=== PATIENT | female | born 1955 | race Caucasian/White ===

== ENCOUNTER → 2016-05-20 | Outpatient (CLI) | payer OTHER ==
[~2016-05-20] MED LIST: HYDR-3816 PO
--- NOTE | 2016-05-20 10:34 | Diagnostic Imaging Report ---
INDICATION: Right knee pain AP, oblique, and lateral views of the right knee are obtained. There is mild patellofemoral spurring. There is mild medial joint space narrowing with osteophyte formation. There is no acute fracture or acute bony abnormality. There is no overt joint effusion. IMPRESSION: Mild degenerative findings with no acute bony abnormality. Dictated by: Dictated on workstation # [id number]
== END ==
LOC: RAD 10:10
PROVIDERS: ATTEND Family Medicine
DX: M25.561 Pain in right knee (principal)
CPT/HCPCS: 73562

== ENCOUNTER → 2016-06-10 | Outpatient (CLI) | payer OTHER ==
--- OUTSIDE RECORDS SUMMARY | 2016-06-10 15:32 | XMS REPORT | Continuity of Care Document ---
Author Author [facility] Organization [facility] Address Unknown Phone Unavailable Allergies Medications Problems Date Dx Coded Attending Type Code Diagnosis Diagnosed By 01/25/2014 RODOLFO NATH MD Ot V43.64 HIP JOINT REPLACEMENT STATUS 01/25/2014 RODOLFO NATH MD Ot V58.61 ANTICOAGULANTS,LT,CURRENT USE 01/25/2014 RODOLFO NATH MD Ot V58.83 ENCOUNTER FOR THERAPEUTIC DRUG MONITORIN 10/31/2015 Ot 528.9 ORAL SOFT TISSUE DIS NEC 10/31/2015 HAYLIE FRIAS DOQUELINE S Ot 715.35 LOC OSTEOARTH NOS-PELVIS 10/31/2015 RODRIGUEZ SHAH WARREN S Ot V76.12 OTH SCREEN MAMMO-MALIGN NEOPLASM OF ENEDELIA 10/31/2015 DARRIONNDBHAVANI DO, WARREN S Ot 715.15 LOC PRIM OSTEOART-PELVIS 10/31/2015 HAYLIE FRIAS DOQUELINE S Ot V72.84 EXAM PRE-OPERATIVE NOS 10/31/2015 Ot V43.64 HIP JOINT REPLACEMENT STATUS 10/31/2015 Ot V58.61 ANTICOAGULANTS,LT,CURRENT USE 10/31/2015 Ot V58.83 ENCOUNTER FOR THERAPEUTIC DRUG MONITORIN 11/01/2015 DARRIONNDBHAVANI SHAH WARREN S Ot Z12.31 ENCNTR SCREEN MAMMOGRAM FOR MALIGNANT NE 11/01/2015 DARRIONNDBHAVANI DO, WARREN S Ot Z12.31 ENCNTR SCREEN MAMMOGRAM FOR MALIGNANT NE 05/20/2016 Ot 528.9 ORAL SOFT TISSUE DIS NEC 05/20/2016 DARRIONNDBHAVANI DO, WARREN S Ot 715.35 LOC OSTEOARTH NOS-PELVIS 05/20/2016 DARRIONNDBHAVANI DO WARREN S Ot V76.12 OTH SCREEN MAMMO-MALIGN NEOPLASM OF ENEDELIA 05/20/2016 DARRIONNDHAYLIE BECKHAM DOQUELINE S Ot 715.15 LOC PRIM OSTEOART-PELVIS 05/20/2016 WARREN FRIAS DO Ot V72.84 EXAM PRE-OPERATIVE NOS 05/20/2016 Ot V43.64 HIP JOINT REPLACEMENT STATUS 05/20/2016 Ot V58.61 ANTICOAGULANTS,LT,CURRENT USE 05/20/2016 Ot V58.83 ENCOUNTER FOR THERAPEUTIC DRUG MONITORIN 05/20/2016 WARREN FRIAS DO Ot Z12.31 ENCNTR SCREEN MAMMOGRAM FOR MALIGNANT NE 05/21/2016 WARREN FRIAS DO Ot M25.561 PAIN IN RIGHT KNEE Procedures Results Encounters ACCT No. Visit Date/Time Discharge Status Pt. Type Provider Facility Loc./Unit Complaint [id number] 11/21/2013 08:52:00 2013 00:01:[address], RODOLFO Barlow [facility] LAB S/P TH COUMADIN [id number] 10/04/2013 08:19:00 2013 23:59:59 CLS Outpatient WARREN FRISA DO [facility] CARD OSTEOARTHROSIS,PRE OP [id number] 04/14/2013 10:45:00 2012 23:59:59 CLS Outpatient WARREN FRIAS DO [facility] RAD R HIP PAIN,SCREENING MAMMO [id number] 05/20/2016 10:10:00 ACT Outpatient WARREN FRIAS DO [facility] RAD RT KNEE PAIN [id number] 10/31/2015 08:39:00 ACT Outpatient WARREN FRIAS DO [facility] RAD SCREENING [id number] 01/26/2014 00:00:00 Document Registration [id number] 03/15/2012 15:31:00 Document Registration
--- NOTE | 2016-06-10 16:33 | Diagnostic Imaging Report ---
PROCEDURE: MRI right joint lower extremity without contrast. TECHNIQUE: Multiplanar, multisequence non contrast-enhanced MRI of the right lower extremity was accomplished. INDICATION: Knee pain. There are no previous MRI examinations available for comparison. The plain film examination of the right knee performed on 05/20/16 failed to show any sign of an acute abnormality. There was mild narrowing of the medial compartment of the knee joint, however. FINDINGS: This study is less than optimal due to the patient's body habitus. On the proton dense sagittal images, the midportion of the medial meniscus is thinned and somewhat indistinct. I am concerned that it is partially torn. There is also some abnormal signal of the posterior horn of the medial meniscus and this portion of the meniscus may be torn as well. The lateral meniscus seems to be intact. The anterior and posterior cruciate ligaments, the quadriceps and infrapatellar tendons, the collateral ligaments, the biceps femoris tendon and the iliotibial band show no sign of an acute injury. There is no evidence for an injury to either the medial or lateral retinaculum. There is no abnormal signal arising from the osseous structures to suggest bone edema or a fracture. There does appear to be at least moderate degenerative disease involving the articular surface of the medial femoral condyle. Most likely, these degenerative changes are related to the suspected injury to the midportion and posterior horn of the medial meniscus. The articular surface of the lateral femoral condyle is fairly well maintained. There is mild narrowing of the lateral aspect of the patellofemoral space. There is a small joint effusion present. There is also a 1.2 x 4.7 cm Osborne's cyst. IMPRESSION: 1. The indistinct appearance of the midportion and the posterior horn of the medial meniscus suggests that these portions of the meniscus are partially torn. There is also at least moderate degenerative disease involving the articular surface of the medial femoral condyle. 2. The lateral meniscus and the major ligaments and tendons are intact. 3. There is no sign of an acute bony abnormality. 4. There is a small joint effusion present as well as a Osborne's cyst. Dictated by: Dictated on workstation # [id number]
== END ==
LOC: RAD 15:28
PROVIDERS: ATTEND Family Medicine
DX: M17.11 Unilateral primary osteoarthritis, right knee (principal); M25.461 Effusion, right knee; M71.21 Synovial cyst of popliteal space [Baker], right knee
CPT/HCPCS: 73721

== ENCOUNTER 2016-06-26 15:18 | Outpatient (CLI) | payer OTHER ==
[~2016-06-26] VITALS: Ht 166.4 cm; Wt 100.9 kg
--- OUTSIDE RECORDS SUMMARY | 2016-06-26 15:20 | XMS REPORT | Continuity of Care Document ---
Author Author [facility] Organization [facility] Address Unknown Phone Unavailable Allergies Medications Problems [...] DO Ot M25.561 PAIN IN RIGHT KNEE 06/11/2016 WARREN FRIAS DO S Ot M17.11 UNILATERAL PRIMARY OSTEOARTHRITIS, RIGHT 06/11/2016 WARREN FRIAS DO S Ot M25.461 EFFUSION, RIGHT KNEE 06/11/2016 WARREN FRIAS DO S Ot M71.21 SYNOVIAL CYST OF POPLITEAL SPACE [ SHAY] 06/25/2016 WARREN FRIAS DO S Ot M25.561 PAIN IN RIGHT KNEE Procedures Results Encounters ACCT No. Visit Date/Time Discharge Status Pt. Type Provider Facility Loc./Unit Complaint [id number] 11/21/2013 08:52:00 2013 00:01:[address], RODOLFO Barlow [facility] LAB S/P TH COUMADIN [id number] 10/04/2013 08:19:00 2013 23:59:59 CLS Outpatient ILIR FRIAS DOLINE S [facility] CARD OSTEOARTHROSIS,PRE OP [id number] 04/14/2013 10:45:00 2012 23:59:59 CLS Outpatient HAYLIE FRIAS DOQUELINE S [facility] RAD R HIP PAIN,SCREENING MAMMO [id number] 06/10/2016 15:28:00 ACT Outpatient ILIR FRIAS DOLINE S [facility] RAD PAIN IN RIGHT KNEE [id number] 05/20/2016 10:10:00 ACT Outpatient HAYLIE FRIAS DOQUELINE S [facility] RAD RT KNEE PAIN [id number] 10/31/2015 08:39:00 ACT Outpatient ILIR FRIAS DOLINE S [facility] RAD SCREENING [id number] 01/26/2014 00:00:00 Document Registration [id number] 03/15/2012 15:31:00 Document Registration
[2016-06-26 15:38] VITALS: BP 129/80
== END 2016-06-26 16:00 | disposition home or self-care (01) ==
LOC: PREOP 15:18
PROVIDERS: ATTEND Orthopaedic Surgery
DX: Z01.818 Encounter for other preprocedural examination (principal); Z11.2 Encounter for screening for other bacterial diseases; M23.8X1 Other internal derangements of right knee
CPT/HCPCS: 87081

== ENCOUNTER 2016-07-02 08:42 | Day surgery (SDC) | payer OTHER ==
--- NOTE | 2016-07-01 11:05 | HISTORY AND PHYSICAL ---
DICTATING PHYSICIAN: Dr. Mccall DATE OF ADMISSION: 07/02/2016 Outpatient surgery for right knee arthroscopy. HISTORY: The patient is a 60-year-old female with reports of progressively worsening right knee pain. She injured her right knee while twisting. She felt and heard a pop. She has had posterior medial knee pain since that point. She reports no improvement. She has had to ambulate with crutches. She denies hip pain, back pain and paresthesias and due to interference with activities of daily living and failure to improve with conservative measures, the patient has elected to proceed with surgical intervention. REVIEW OF SYSTEMS: No chest pain, no shortness of breath. No dysuria. PAST MEDICAL HISTORY: Allergic rhinitis. PAST SURGICAL HISTORY: 1. Hysterectomy. 2. Tonsillectomy. FAMILY HISTORY: Significant for hypertension. PRIMARY CARE PROVIDER: Dr. Billy. MEDICATIONS: 1. Naprosyn. 2. Mobic. 3. Fish oil. 4. Vitamin C. 5. Calcium. ALLERGIES: No known drug allergies. SOCIAL HISTORY: The patient denies alcohol and tobacco use. Outside MRI reveals posterior horn medial meniscal tear extending to the body with some mild medial joint space narrowing. PHYSICAL EXAMINATION: The patient is well-developed, well-nourished, in no acute distress. HEENT: Normocephalic, atraumatic. Pupils are equal, round, and reactive to light. Oropharynx is clear. NECK: Supple with no lymphadenopathy. LUNGS: Clear to auscultation bilaterally. HEART: Regular rate and rhythm. ABDOMEN: Soft, nontender, nondistended. EXTREMITY EXAM: The right knee demonstrates a large effusion. She is markedly tender along her medial joint line and has pain medially with Edith's. She has pain with hyperflexion. She ambulates with a crutch. There is no varus valgus laxity. Negative anterior posterior drawer. No skin lesions are noted and sensation is intact throughout. 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 PLAN: Right knee arthroscopy, partial medial meniscectomy and chondroplasty. The risks, benefits, options, ramifications and recovery have been discussed at length with the patient and she understands and wishes to proceed. Job ID: [id number] Dictated Date: 06/24/2016 09:45:00 Manufacturing Engineer Paint Date: 06/24/2016 11:46:26/rohit
[~2016-07-02] VITALS: Ht 166.4 cm; Wt 100.9 kg
[2016-07-02] MEDS: LACTATED RINGERS 1,000 ML IV PRN ×2 (08:55→11:34)
--- OUTSIDE RECORDS SUMMARY | 2016-07-02 08:56 | XMS REPORT | Continuity of Care Document ---
Author Author [facility] Organization [facility] Address Unknown Phone Unavailable Allergies Active Description Code Type Severity Reaction Onset Reported/Identified Relationship to Patient Clinical Status Yes No Known Drug Allergies [id number] Drug Allergy Unknown N/ A 06/26/2016 Medications Problems Date Dx Coded Attending Type [...] OTH SCREEN MAMMO-MALIGN NEOPLASM OF ENEDELIA 10/31/2015 HAYLIE FRIAS DOQUELINE S Ot 715.15 LOC PRIM OSTEOART-PELVIS 10/31/2015 HAYLIE FRIAS DOQUELINE S Ot V72.84 EXAM PRE-OPERATIVE NOS 10/31/2015 Ot V43.64 HIP JOINT REPLACEMENT STATUS 10/31/2015 Ot V58.61 ANTICOAGULANTS,LT,CURRENT USE 10/31/2015 Ot V58.83 ENCOUNTER FOR THERAPEUTIC DRUG MONITORIN 11/01/2015 DARRIONNDBHAVANI SHAH WARREN S Ot Z12.31 ENCNTR SCREEN MAMMOGRAM FOR MALIGNANT NE 11/01/2015 HAYLIE FRIAS DOQUELINE S Ot Z12.31 ENCNTR SCREEN MAMMOGRAM FOR MALIGNANT NE 05/20/2016 Ot 528.9 ORAL SOFT TISSUE DIS NEC 05/20/2016 HAYLIE FRIAS DOQUELINE S Ot 715.35 LOC OSTEOARTH NOS-PELVIS 05/20/2016 HAYLIE FRIAS DOQUELINE S Ot V76.12 OTH SCREEN MAMMO-MALIGN NEOPLASM OF ENEDELIA 05/20/2016 WARREN FRIAS DO Ot 715.15 LOC PRIM OSTEOART-PELVIS 05/20/2016 WARREN FRIAS DO Ot V72.84 EXAM PRE-OPERATIVE NOS 05/20/2016 Ot V43.64 HIP JOINT REPLACEMENT STATUS 05/20/2016 Ot V58.61 ANTICOAGULANTS,LT,CURRENT USE 05/20/2016 Ot V58.83 ENCOUNTER FOR THERAPEUTIC DRUG MONITORIN 05/20/2016 WARREN FRIAS DO Ot Z12.31 ENCNTR SCREEN MAMMOGRAM FOR MALIGNANT NE 05/21/2016 WARREN FRIAS DO Ot M25.561 PAIN IN RIGHT KNEE 06/11/2016 WARREN FRIAS DO Ot M17.11 UNILATERAL PRIMARY OSTEOARTHRITIS, RIGHT 06/11/2016 WARREN FRIAS DO Ot M25.461 EFFUSION, RIGHT KNEE 06/11/2016 RODRIGUEZ SHAH WARREN Noel Ot M71.21 SYNOVIAL CYST OF POPLITEAL SPACE [ SHAY] 06/25/2016 RODRIGUEZ SHAH WARREN Noel Ot M25.561 PAIN IN RIGHT KNEE 06/26/2016 Ot V43.64 HIP JOINT REPLACEMENT STATUS 06/26/2016 Ot V58.61 ANTICOAGULANTS,LT,CURRENT USE 06/26/2016 Ot V58.83 ENCOUNTER FOR THERAPEUTIC DRUG MONITORIN 06/27/2016 LILA PAULA MD Ot M23.8X1 OTHER INTERNAL DERANGEMENTS OF RIGHT KNE 06/27/2016 LILA PAULA MD Ot Z01.818 ENCOUNTER FOR OTHER PREPROCEDURAL EXAMIN 06/27/2016 LILA PAULA MD Ot Z11.2 ENCOUNTER FOR SCREENING FOR OTHER BACTER Procedures Results Test Result Range Methicillin resistant Staphylococcus aureus (MRSA) screening culture - 15:30 Methicillin resistant Staphylococcus aureus (MRSA) screening culture NEG NRG Encounters ACCT No. Visit Date/Time Discharge Status Pt. Type Provider Facility Loc./Unit Complaint [id number] 06/26/2016 15:18:00 2016 16:00:00 DIS Outpatient LILA PAULA MD [facility] PREOP RIGHT TORN MEDIAL MENISCUS [id number] 11/21/2013 08:52:00 2013 00:01:[address], RODOLFO Barlow [facility] LAB S/P TH COUMADIN [id number] 10/04/2013 08:19:00 2013 23:59:59 CLS Outpatient WARREN FRIAS DO [facility] CARD OSTEOARTHROSIS,PRE OP [id number] 04/14/2013 10:45:00 2012 23:59:59 CLS Outpatient WARREN FRIAS DO [facility] RAD R HIP PAIN,SCREENING MAMMO [id number] 07/02/2016 12:00:00 PEN Preadamada PAULA MD, LILA Mora [facility] RIGHT KNEE TORN MENISCUS [id number] 06/10/2016 15:28:00 ACT Outpatient WARREN FRIAS DO [facility] RAD PAIN IN RIGHT KNEE [id number] 05/20/2016 10:10:00 ACT Outpatient WARREN FRIAS DO [facility] RAD RT KNEE PAIN [id number] 10/31/2015 08:39:00 ACT Outpatient WARREN FRIAS DO [facility] RAD SCREENING [id number] 01/26/2014 00:00:00 Document Registration [id number] 03/15/2012 15:31:00 Document Registration
--- OUTSIDE RECORDS SUMMARY | 2016-07-02 08:56 | XMS REPORT | Continuity of Care Document ---
Author Author [facility] Organization [facility] Address Unknown Phone Unavailable Allergies Active Description Code Type Severity Reaction Onset Reported/Identified Relationship to Patient Clinical Status Yes No Known Drug Allergies [id number] Drug Allergy Unknown N/ A 06/26/2016 Medications [...] EFFUSION, RIGHT KNEE 06/11/2016 RODRIGUEZ SHAH WARREN Nole Ot M71.21 SYNOVIAL CYST OF POPLITEAL SPACE [...] Status Pt. Type Provider Facility Loc./Unit Complaint [id number] 06/26/2016 15:18:00 2016 16:00:00 DIS Outpatient LILA PAULA MD [facility] PREOP RIGHT TORN MEDIAL MENISCUS [id number] 11/21/2013 08:52:00 2013 00:01:[address], RODOLFO Barlow [facility] LAB S/P TH COUMADIN [id number] 10/04/2013 08:19:00 2013 23:59:59 CLS Outpatient WARREN FRIAS DO [facility] CARD OSTEOARTHROSIS,PRE OP [id number] 04/14/2013 10:45:00 2012 23:59:59 CLS Outpatient WARREN FRIAS DO [facility] RAD R HIP PAIN,SCREENING MAMMO [id number] 07/02/2016 12:00:00 PEN Preadamada PAULA MD, LILA Mora [facility] RIGHT KNEE TORN MENISCUS [id number] 06/10/2016 15:28:00 ACT Outpatient WARREN FRIAS DO [facility] RAD PAIN IN RIGHT KNEE [id number] 05/20/2016 10:10:00 ACT Outpatient WARREN FRIAS DO [facility] RAD RT KNEE PAIN [id number] 10/31/2015 08:39:00 ACT Outpatient WARREN FRIAS DO [facility] RAD SCREENING [id number] 01/26/2014 00:00:00 Document Registration [id number] 03/15/2012 15:31:00 Document Registration
[2016-07-02 09:00] VITALS: BP 131/88
[2016-07-02] MEDS ORDERED: LACTATED RINGERS 1,000 ML IV ONE ×2 (09:14→11:45)
[2016-07-02] MEDS ORDERED: SEVOFLURANE (ULTANE) 15 ML INHAL SOLN ONE ×3 (09:14→11:45)
[2016-07-02] MEDS ORDERED: LIDOCAINE PF 2% 10 ML (XYLOCAINE) AMP ONE (09:14)
[2016-07-02] MEDS ORDERED: proPOfol 200 MG/20 ML (DIPRIVAN) VIAL IV ONE (09:14)
[2016-07-02] MEDS ORDERED: fentaNYL INJECTION 100 MCG/2 ML AMP ONE (09:15)
[2016-07-02] MEDS ORDERED: MIDAZOLAM 2 MG/2 ML (VERSED) VIAL ONE (09:15)
--- NOTE | 2016-07-02 09:20 | Progress Note-Pre Operative ---
Pre-Operative Progress Note H&P Reviewed The H&P was reviewed, patient examined and no changes noted. Date H&P Reviewed: Jul 02, 2016 Time H&P Reviewed: 09:20 Pre-Operative Diagnosis: right knee medial meniscal tear and chondromalacia LILA PAULA MD Jul 02, 2016 09:20
--- NOTE | 2016-07-02 09:22 | Progress Note-Post Operative ---
Post-Operative Progess Note Project Economist Dev Schwab Pre-Operative Diagnosis right knee medial meniscal tear and chondromalacia of the patella Post-Operative Diagnosis right knee medial meniscal tear, chondromalacia of the patella and chondral defect of medial femoral condyle Post-Op Procedure Note Date of Procedure: Jul 02, 2016 Name of Procedure: right knee arthroscopic partial medial meniscectomy, chondroplasty of the patella and microfracture of the medial femoral condyle Anesthesia Type GETA Estimated blood loss (mL): minimal Packing: none Specimen(s) collected none LILA PAULA MD Jul 02, 2016 09:22
[2016-07-02] MEDS ORDERED: ceFAZolin 1,000 MG (ANCEF) VIAL ONE (09:31)
[2016-07-02] MEDS ORDERED: NS (IVPB) 50 ML ONE (09:31)
[2016-07-02] MEDS ORDERED: HYDROcodone/APAP 7.5 MG/325 MG (LORTAB, LORCET PLUS) TABLET PO PRN (09:45)
[2016-07-02] MEDS ORDERED: BUPIVACAINE 0.25% 30 ML (SENSORCAINE) VIAL ONE (10:45)
[2016-07-02] MEDS ORDERED: morphine PF (DURAMORPH) 10 MG/10 ML AMP ONE (10:45)
[2016-07-02] MEDS ORDERED: ceFAZolin 1 GM/NS 50 ML IVPB IV ONE ×2 (11:00)
[2016-07-02] MEDS ORDERED: morphine INJ 10 MG/ML 1ML (SYR OR VIAL) IVP PRN (11:45)
[2016-07-02] MEDS ORDERED: ONDANSETRON 4 MG/2 ML (SDV) Z0FRAN IVP PRN (11:45)
[2016-07-02] MEDS ORDERED: DEXAMETHASONE PF 10 MG/ML (DECADRON) VIAL ONE (11:45)
[2016-07-02] MEDS ORDERED: ONDANSETRON 4 MG/2 ML (SDV) Z0FRAN ONE (11:45)
[2016-07-02] MEDS ORDERED: MEPERIDINE (DEMEROL) INJ 50 MG/ML IVP PRN (11:45)
[2016-07-02 12:35] VITALS: BP 135/84
[2016-07-02] MEDS ORDERED: HYDR-3816 PO (13:00)
[2016-07-02 13:05] VITALS: BP 130/78
--- NOTE | 2016-07-02 13:35 | Physical Therapy Ortho Eval ---
PT Orthopedic Evaluation Type of Surgery Knee Scope WBAT Prior Level of Function Current Living Status: Spouse Patient states she was using 1 crutch before surgery. Subjective Subjective Patient in bed pre tx, agrees to PT, states she has pain of 5/10 in right knee. Entry Into Home: Stairs With Railing Steps Into Home: 3 Objective Objective right knee ROM flexion 70 degrees, extension +3 degrees, intact light touch Motor Control Motor Control: Motor Control WNL Strength Strength: WFL Transfer Transfers (B, C, W/C) (FIM): 4 (CGA) Gait Gait Assistive Device: Crutches Weight Bearing Restriction: Weight Bearing/Tolerated Location Restriction: R LE Gait (FIM): 2 Distance: 50' Gait Level of Assist: 4 (CGA) Summary/Comments patient also went up and down 1 step using axillary crutches with CGA and cues for safety and foot placement, she was also toileted with CGA Treatment Rendered Treatment: Therapeutic Exercises, Gait Train, Step Train Exercise Instruction: Quad Sets, Heel Slides, Ankle Pumps Assessment/Goals Goal Time Frame: 1 Visit Plan Treatment Plan: Discharge PT/Family Agrees to Plan: Yes Time Time In: 1310 Time Out: 1325 Total Billed Treatment Time: 15 Billed Treatment Time 1 visit EVL 15 min Yes PT/OT Therapy GCodes Therapy Functional Limitation: Physical Therapy Test(s)/Tool used to determine: Level of Assistance Scale Functional Limitation-Current Charge Code: MOBCUR Modifier: CI Functional Limitation-Goal Charge Code: MOBGOAL Modifier: CI Functional Limitation-D/C Charge Codes: MOBDC Modifier: CI SARITA MARLEY PT Jul 02, 2016 13:35
--- NOTE | 2016-07-02 15:21 | OPERATIVE REPORT ---
PROCEDURE PHYSICIAN: LILA PAULA DATE OF PROCEDURE: 07/02/2016 PREOPERATIVE DIAGNOSIS: 1. Right knee medial meniscal tear. 2. Right knee chondromalacia of the patella. POSTOPERATIVE DIAGNOSIS: 1. Right knee medial meniscal tear. 2. Right knee chondromalacia of the patella. 3. Right knee chondral defect of the medial femoral condyle. PROCEDURE: 1. Right knee arthroscopic microfracture of the medial femoral condyle. 2. Right knee arthroscopic partial medial meniscectomy. 3. Right knee arthroscopic chondroplasty of the patella. SURGEON: Cal [employer] OR BAGGAGE HANDLING RAMPMAN: Dev Schwab who assisted throughout the procedure and closed the incision. ANESTHESIA: General endotracheal by Dr. De La Cruz. TOURNIQUET TIME: Was not applicable. ESTIMATED BLOOD LOSS: Minimal. DRAINS: None. COMPLICATIONS: None. POSTOPERATIVE PLAN: No impact activities for 8 weeks with weight-bearing as tolerated with assistive devices. The patient was transported to the recovery room, awake, in stable condition. STATEMENT OF MEDICAL NECESSITY: The patient is a 60-year-old female with complaints of right knee pain along her medial joint line. She reports catching and locking. On exam she had tenderness along her medial joint line and pain medially with Edith's. She was having to ambulate with a crutch and due to functional impairment, the patient elected proceed with surgical intervention. Examination under anesthesia revealed range of motion 0/0/140 with negative Deuce. Negative anterior posterior drawer. No varus valgus laxity and negative pivot shift. Arthroscopic findings demonstrated grade 2 chondral flaps over the central portion of the patella in a 8 x 8 area. The trochlea demonstrated grade 1 chondral softening. The medial and lateral gutters were clear. The lateral compartment demonstrated no significant meniscal or chondral pathology. The ACL and PCL were intact. The medial compartment demonstrated a radial tear of the posterior horn/body junction of the meniscus involving approximately 20% of the posterior horn/body junction. In addition, there was a grade 4 chondral defect which was well shouldered on the central weight-bearing portion of the femoral condyle in a 10 x 10 area. PROCEDURE: After risks and benefits of the procedure were discussed and questions were answered. Informed consent was signed and placed on chart. The operative site was confirmed in the preoperative holding area and initialed by the surgeon. The patient was then transported to operating room and after adequate levels of general endotracheal anesthetic were seen a timeout was called confirming the operative site. The right lower extremity was then prepped and draped usual sterile fashion after an examination under anesthesia. The knee joint was injected with 60 mL of fluid and an inferolateral portal was placed for the arthroscope with inflow cannula. A diagnostic arthroscopy was carried out with the above findings noted after placing an inferior medial portal under direct visualization. The unstable chondral flaps on the patella were debrided with a shaver back to a stable edge. The scope was then redirected into the medial compartment. The medial meniscus was debrided with a biter and a shaver, removing approximately 20% of the junction of the posterior horn and body. The chondral defect was then debrided back to a well shouldered lesion and a curette was used to the subchondral plate. A microfracture was then performed with a curved awl in 3 mm increments with good blood return noted. The knee was copiously irrigated. Port sites were closed with 3-0 nylon in simple interrupted fashion. The knee was injected with Duramorph. Port sites were infiltrated with plain Marcaine. A soft dressing was applied. The patient was transported to the recovery room, awake, in stable condition. Job ID: [id number] Dictated Date: 07/02/2016 11:46:02 Environmental Intern Date: 07/02/2016 15:06:16 / rohit
== END 2016-07-02 13:38 | disposition home or self-care (01) ==
LOC: SDC 08:42
PROVIDERS: ATTEND Orthopaedic Surgery
DX: M23.8X1 Other internal derangements of right knee (principal); M22.41 Chondromalacia patellae, right knee

== ENCOUNTER → 2017-03-04 | Outpatient (CLI) | payer OTHER ==
--- NOTE | 2017-03-06 07:46 | Diagnostic Imaging Report ---
Bilateral screening mammogram 2D views with tomosynthesis The current study was also evaluated with a Computer Aided Detection (CAD) system. Indication: Screening. No current complaints stated on the questionnaire. COMPARISON: 10/31/15 FINDINGS: The breasts are composed of heterogeneously dense parenchyma which may decrease mammographic sensitivity. There are benign-appearing calcifications seen. Allowing for technique and positional differences, no suspicious change is seen. IMPRESSION: No significant change. ACR BI-RADS Category 2: Benign findings. Result letter will be mailed to the patient. Note: At least 10% of breast cancer is not imaged by mammography. Dictated by: Dictated on workstation # [id number]
== END ==
LOC: RAD 08:41
PROVIDERS: ATTEND Family Medicine
DX: Z12.31 Encounter for screening mammogram for malignant neoplasm of breast (principal)
CPT/HCPCS: 77067

== ENCOUNTER → 2018-07-15 | Outpatient (CLI) | payer OTHER ==
[~2018-07-15] MED LIST changes: +HYDR-34 PO; -HYDR-3816 PO
--- NOTE | 2018-07-15 19:02 | Diagnostic Imaging Report ---
INDICATION: Routine screening. COMPARISON: Comparison is made with prior mammograms from 03/04/2017 and 10/31/2015. TECHNIQUE: 2D and 3D bilateral screening mammography was performed with computer-aided detection (CAD) system. FINDINGS: Both breasts are heterogeneously dense, limiting the sensitivity of mammography. Benign calcifications on the left are noted. No mass or malignant appearing microcalcifications are seen. The axillae are unremarkable. IMPRESSION: No mammographic features suspicious for malignancy are identified. ACR BI-RADS Category 2: Benign findings. Result letter will be mailed to the patient. Note: At least 10% of breast cancer is not imaged by mammography. Dictated by: Dictated on workstation # [id number]
== END ==
LOC: RAD 07:53
PROVIDERS: ATTEND Family Medicine
DX: Z12.31 Encounter for screening mammogram for malignant neoplasm of breast (principal)
CPT/HCPCS: 77067

== ENCOUNTER → 2020-06-22 | Outpatient (CLI) | payer OTHER ==
--- NOTE | 2020-06-22 12:00 | Diagnostic Imaging Report ---
Indication: Routine screening. Comparison is made with prior mammogram 07/07/2018 and 03/04/2017. 2-D and 3-D bilateral screening mammography was performed with CAD. Both breasts remain heterogeneously dense, limiting the sensitivity of mammography. The parenchymal pattern is stable. No mass or malignant appearing microcalcifications are seen. There are benign calcifications present. Axillae are unremarkable. IMPRESSION: BI-RADS Category 2 No mammographic features suspicious for malignancy are identified. ACR BI-RADS Category 2: Benign findings. Result letter will be mailed to the patient. Note: At least 10% of breast cancer is not imaged by mammography. Dictated by: Dictated on workstation # [id number]
== END ==
LOC: RAD 09:02
PROVIDERS: ATTEND Family Medicine
DX: Z12.31 Encounter for screening mammogram for malignant neoplasm of breast (principal)
CPT/HCPCS: 77063; 77067

== ENCOUNTER 2020-08-14 05:33 | Outpatient (CLI) | payer OTHER ==
[~2020-08-14] VITALS: Ht 165.1 cm; Wt 103.6 kg
[2020-08-14] MEDS ORDERED: METF-397 PO (13:17)
[2020-08-14] MEDS ORDERED: CALC600T91 PO (13:17)
[2020-08-14] MEDS ORDERED: ALEN1TAB PO (13:17)
[2020-08-14] MEDS ORDERED: OMG1KC PO (13:17)
== END 2020-08-14 14:31 | disposition home or self-care (01) ==
LOC: PREOP 05:33
PROVIDERS: ATTEND Surgery
DX: Z01.818 Encounter for other preprocedural examination (principal)

== ENCOUNTER 2020-08-21 08:22 | Day surgery (SDC) | payer OTHER ==
[~2020-08-21] VITALS: Ht 165.1 cm; Wt 103.6 kg
[~2020-08-21 08:22] MED LIST changes: +ALEN1TAB PO; +CALC600T91 PO; +METF-397 PO; +OMG1KC PO
[2020-08-21] MEDS ORDERED: MIDAZOLAM 2 MG/2 ML (VERSED) VIAL ONE (08:29)
[2020-08-21] MEDS ORDERED: PROPOFOL INJECTION 50 ML IV ONE (08:29)
[2020-08-21] MEDS ORDERED: ceFAZolin 2 GM IV Premixed 50 ML ONE (08:33)
[2020-08-21] MEDS ORDERED: LACTATED RINGERS 1,000 ML IV STA (08:38)
[2020-08-21 08:44] VITALS: BP 138/79
--- NOTE | 2020-08-21 09:03 | Progress Note-Pre Operative ---
Pre-Operative Progress Note H&P Reviewed The H&P was reviewed, patient examined and no changes noted. Date Seen by Provider: August 21, 2020 Time Seen by Provider: 09:03 Date H&P Reviewed: August 21, 2020 Time H&P Reviewed: 09:03 Pre-Operative Diagnosis: screening colonoscopy MAURA RENEE DO August 21, 2020 09:03
[2020-08-21] MEDS ORDERED: ceFAZolin 2 GM IV Premixed 50 ML IV ONE (10:15)
--- NOTE | 2020-08-21 10:16 | Progress Note-Post Operative ---
Post-Operative Progess Note Surgeon (s)/Telegraph Installer (s) Surgeon MAURA RENEE DO Telegraph Installer: na Pre-Operative Diagnosis screening colonoscopy Post-Operative Diagnosis diverticlosis Procedure & Operative Findings Date of Procedure 08/21/20 Procedure Performed/Findings colonoscopy Anesthesia Type per intake counselor Estimated Blood Loss Estimated blood loss (mL): none Specimens/Packing Specimens Removed na MAURA RENEE DO August 21, 2020 10:16
--- NOTE | 2020-08-21 10:18 | Discharge Inst-Simple/Standard ---
Discharge Inst-Standard Patient Instructions/Follow Up Plan of Care/Instructions/FU: Juliana 10 years, any issues before that be seen at that time. If family history of colon cancer 5 years. Activity as Tolerated: Yes Discharge Diet: Regular Diet (high fiber) MAURA RENEE DO August 21, 2020 10:18
[2020-08-21 10:20] VITALS: BP 85/54
[2020-08-21 10:25] VITALS: BP 99/57
--- NOTE | 2020-08-21 10:30 | Anesthesia-General Post-Op ---
MAC Patient Condition Mental Status/LOC: Same as Preop Cardiovascular: Satisfactory Nausea/Vomiting: Absent Respiratory: Satisfactory Pain: Controlled Complications: Absent Post Op Complications Complications None Follow Up Care/Instructions Patient Instructions None needed. Anesthesiology Discharge Order Discharge Order Patient is doing well, no complaints, stable vital signs, no apparent adverse anesthesia problems. No complications reported per nursing. YVON BIGGS CRNA August 21, 2020 10:30
--- NOTE | 2020-08-21 14:15 | OPERATIVE REPORT ---
DATE OF SERVICE: 08/21/2020 PREOPERATIVE DIAGNOSIS: Screening colonoscopy. POSTOPERATIVE DIAGNOSIS: Diverticulosis. PROCEDURE: Colonoscopy. SURGEON: Maura Andrews DO ANESTHESIA: Per MODEL DRESSER. ESTIMATED BLOOD LOSS: None. COMPLICATIONS: None. INDICATIONS: The patient is a 65-year-old female needing screening colonoscopy. She understands risks and benefits and wishes to proceed. Consent was signed in the chart. DESCRIPTION OF PROCEDURE: The patient was taken to the endoscopy suite, placed in left lateral recumbent position. Timeout was performed. Digital rectal exam was performed. No palpable polyps, masses or ulcerations. Scope was inserted in the rectum and advanced all the way to cecum with minimal difficulty. Prep was adequate. Scope was then slowly retracted back. There were no polyps, masses or ulcerations within the cecum, ascending, transverse, descending and sigmoid colon. A minimal amount of diverticulosis through the sigmoid colon. Once in the rectum, scope was retroflexed noting no other pathology. Scope was returned to its normal position, slowly withdrawn until completely removed. The patient tolerated procedure well without any complications. She was taken to recovery room in stable condition. RECOMMENDATIONS: The patient will need repeat colonoscopy in 10 years unless family history of colon cancer, which then be 5 years any issues before that be seen at that time. With diverticulosis, would recommend high fiber diet. Job ID: [id number] DocumentID: [id number] Dictated Date: 08/21/2020 10:30:24 Certified Professional Controller Date: 08/21/2020 14:14:28 Dictated By: MAURA ANDREWS DO
== END 2020-08-21 11:10 | disposition home or self-care (01) ==
LOC: ENDO 08:22
PROVIDERS: ATTEND Surgery
DX: Z12.11 Encounter for screening for malignant neoplasm of colon (principal); K57.30 Diverticulosis of large intestine without perforation or abscess without bleeding; G43.909 Migraine, unspecified, not intractable, without status migrainosus; E11.9 Type 2 diabetes mellitus without complications; E66.9 Obesity, unspecified; M19.90 Unspecified osteoarthritis, unspecified site; Z68.38 Body mass index [BMI] 38.0-38.9, adult; Z79.84 Long term (current) use of oral hypoglycemic drugs; Z79.899 Other long term (current) drug therapy; Z96.641 Presence of right artificial hip joint; Z90.710 Acquired absence of both cervix and uterus; Z98.890 Other specified postprocedural states; Z90.89 Acquired absence of other organs; Z80.42 Family history of malignant neoplasm of prostate; Z82.49 Family history of ischemic heart disease and other diseases of the circulatory system; Z83.49 Family history of other endocrine, nutritional and metabolic diseases

== ENCOUNTER → 2020-10-12 | Outpatient (CLI) | payer OTHER ==
[2020-10-12 09:14] LABS: ALANINE AMINOTRANSFERASE 17 U/L (0-55); ALBUMIN 4.2 GM/DL (3.2-4.5); ALKALINE PHOSPHATASE 51 U/L (40-136); BILIRUBIN,TOTAL 0.9 MG/DL (0.1-1.0); BUN/CREATININE RATIO 20; CALCIUM 10.2 MG/DL (8.5-10.1); CARBON DIOXIDE 22 MMOL/L (21-32); CHLORIDE 109 MMOL/L (98-107); CREATININE SERUM 0.66 MG/DL (0.60-1.30); GFR ESTIMATED > 60; GLUCOSE 117 MG/DL (70-105); POTASSIUM 3.8 MMOL/L (3.6-5.0); SODIUM 142 MMOL/L (135-145); TOTAL PROTEIN 6.2 GM/DL (6.4-8.2)
== END ==
LOC: LAB 08:33
PROVIDERS: ATTEND Family Medicine
DX: I10 Essential (primary) hypertension (principal); E11.65 Type 2 diabetes mellitus with hyperglycemia; E55.9 Vitamin D deficiency, unspecified
CPT/HCPCS: 36415; 80053; 82306; 83036

== ENCOUNTER 2021-04-11 15:01 | Outpatient (RCR) | payer OTHER | END 2021-04-19 | disposition home or self-care (01) | DX: M54.12 Radiculopathy, cervical region (principal) ==

== ENCOUNTER → 2022-04-03 | Outpatient (CLI) | payer MEDICARE, OTHER ==
[~2022-04-03] MED LIST changes: -ALEN1TAB PO; +ALEN1TAB5 PO
--- NOTE | 2022-04-04 09:14 | Diagnostic Imaging Report ---
Indication: Routine screening. Comparison is made with prior mammograms from 06/22/2020 and 07/15/2018. 2-D and 3-D bilateral screening mammography was performed with CAD. Both breasts are heterogeneously dense, limiting the sensitivity of mammography. The parenchymal pattern is stable. No mass or malignant-appearing microcalcifications are seen. There are benign calcifications. Axillae are unremarkable. IMPRESSION: BI-RADS Category 2 No mammographic features suspicious for malignancy are identified. ACR BI-RADS Category 2: Benign findings. Result letter will be mailed to the patient. Note: At least 10% of breast cancer is not imaged by mammography. Dictated by: Dictated on workstation # [id number]
== END ==
LOC: RAD 14:35
PROVIDERS: ATTEND Family Medicine
DX: Z12.31 Encounter for screening mammogram for malignant neoplasm of breast (principal)
CPT/HCPCS: 77063; 77067

== ENCOUNTER → 2023-02-18 | Outpatient (CLI) | payer MEDICARE, OTHER ==
--- NOTE | 2023-02-18 13:58 | Diagnostic Imaging Report ---
CLINICAL HISTORY: Left hip pain. COMPARISON: None. TECHNIQUE: Two views of the left hip. FINDINGS: There is no acute fracture or dislocation of the left hip. Alignment is anatomic. The imaged joint spaces are preserved. No focal osseous lesions. IMPRESSION: No acute fracture or dislocation in the left hip. Dictated by: Dictated on workstation # [id number]
== END ==
LOC: RAD 12:29
PROVIDERS: ATTEND Chiropractor
DX: M25.552 Pain in left hip (principal)
CPT/HCPCS: 73502